=== PATIENT | female | born 1970 | race Caucasian/White ===

== ENCOUNTER 2017-01-21 10:52 | Emergency (ER) | payer OTHER, MEDICARE ==
[~2017-01-21 10:52] MED LIST: A/B OTIC 54 MG/15 ML AS; ATENOLOL100 M1 PO; CIPRODEX 0.3%-7.5 ML OTIC; CIPRODEX OTIC7.5 ML OT; CORTISPORIN TC10 ML OOTO; CYCLOBENZAPRINE10 MG PO; DIAZEPAM5 MG PO; IBUPROFEN800 M1 PO; NEURONTIN300 M1 PO; OXYBUTYNIN CHLOR5 M1 PO; SERTRALINE HCL100 MG PO; SERTRALINE HCL50 MG PO; TECFIDERA240 M2 PO
--- NOTE | 2017-01-21 11:00 | ED AMS/SEIZURE/WEAK/DIZZY ---
History of Present Illness General Chief Complaint: General Adult Stated Complaint: CHEST PRESSURE DIZZINESS Source: patient, old records Exam Limitations: no limitations Vital Signs & Intake/Output Vital Signs & Intake/Output Vital Signs Date Time Temp Pulse Resp B/P Pulse O2 O2 Flow FiO2 Ox Delivery Rate 01/21 1224 97.0 65 18 133/66 100 Room Air 01/21 1057 74 22 120/69 97 Room Air Allergies Coded Allergies: NO KNOWN ALLERGIES (09/24/16) Reconcile Medications Ascorbate Calcium (Vitamin C) 500 MG TABLET 1 TAB PO DAILY SUPPLEMENT ( Reported) Atenolol 100 MG TABLET 1 TAB PO DAILY BP (Reported) Cholecalciferol (Vitamin D3) (Vitamin D) 1,000 UNIT TABLET 1 TAB PO DAILY SUPPLEMENT (Reported) Dalfampridine (Ampyra) 10 MG TAB.ER.12H 1 TAB PO BID MS (Reported) Dimethyl Fumarate (Tecfidera) 240 MG CAPSULE.DR 1 CAP PO BID MS (Reported) Famotidine 20 MG TABLET 1 TAB PO DAILY GI (Reported) Gabapentin (Neurontin) 300 MG CAPSULE 1 CAP PO TID NEUROPATHY (Reported) Ibuprofen 800 MG TABLET 1 TAB PO Q8 PRN PAIN Melatonin 10 MG TABLET 2 TAB PO QPM SLEEP (Reported) Ondansetron (Zofran Odt) 4 MG TAB.RAPDIS 1 TAB SL TID PRN nausea Sertraline HCl 50 MG TABLET 1 TAB PO DAILY MENTAL HEALTH (Reported) Sertraline HCl 100 MG TABLET 2 TAB PO DAILY MENTAL HEALTH (Reported) Triage Note: PER PT STARTED ABOUT 0930 WHILE IN BED, PROFOUND DIZZYNESS ROOM SPINNING, GET THEM OFTEN PER PT THIS AM, ALSO BAND LIKE UPPER BACK PAIN, HX OF MS THIS AM VOMITTED AND WAS INCONTINENT. Triage Nurses Notes Reviewed? yes Onset: Abrupt Duration: hour(s): (2), better, constant Timing: recent history Injury Environment: home Severity: moderate Severity Numbers: 6 Modifying Factors: Worsens With: movement. Associated Symptoms: NV HPI: This is a 46-year-old female with history of MS presents emergency room with family for evaluation status post developing sudden onset of room spinning dizziness while she was lying in bed around 9:30 this morning. The patient states that she has these episodes frequently however does not take any medication on a regular basis any symptoms of an attribute to her MS. She states the symptoms resolved however prior to them resolving she developed nausea which is been constant since that 1 episode of vomiting and bilateral however right greater than left upper back pain. She reports the pain is worse with movement. She denies recent trauma or injury. No abdominal pain chest pain palpitations lightheadedness. She denies any change in her bowel movements. She had an episode of urinary incontinence which she states is normal for these episodes. She denies recent travel or immobility no leg swelling. No fever no chills no recent head trauma no change in her mental status per family. No cough no hemoptysis. There is no hematemesis (TERESA LEYVA) Past History Travel History Traveled to [place] past 21 day No Medical History Any Pertinent Medical History? see below for history Neurological: multiple sclerosis EENT: NONE Cardiovascular: SVT Respiratory: NONE Gastrointestinal: NONE Hepatic: NONE Renal: nephrolithiasis Musculoskeletal: NONE Psychiatric: NONE Endocrine: NONE Blood Disorders: NONE Cancer(s): NONE MOTORCYCLE POLICE/Reproductive: NONE Surgical History Surgical History: non-contributory Psychosocial History What is your primary language Yakut Tobacco Use: Never used Family History Hx Contributory? No (TERESA LEYVA) Review of Systems Review of Systems Constitutional: Reports: see HPI. All Other Systems: Reviewed and Negative Comments Review of systems: See HPI, All other systems negative. Constitutional, no chills no fever, no malaise HEENT: No visual changes no sore throat no congestion, no ear pain Cardiovascular: No chest pain , no palpitation , no orthopnea no ankle swelling Skin, no jaundice no rashes, no change in skin Respiratory: No dyspnea no cough no sputum no hemoptysis GI: nausea vomiting, no diarrhea, no bloating/constipation : No dysuria No hematuria, no frequency Muscle skeletal: No joint pain, no joint swelling, back pain, no neck pain, Neurologic: No numbness no confusion, no headache Psych: No stress Heme/endocrine: No bruising no bleeding Immunology: No lymphadenopathy (TERESA LEYVA) Physical Exam Physical Exam General Appearance: well developed/nourished, no apparent distress, alert, awake Comments: Well-developed well-nourished person in no acute distress HEENT: Normal EENT exam; PERRL, EOMI, no nystagmus. HEAD is atraumatic. moist mucous membranes. Neck: Supple, normal range of motion Back: Nontender, no CVA tenderness. Full range of motion Cardiovascular: Regular rate and rhythms no murmurs rubs or gallops Respiratory: Chest nontender.There were no bony deformities, no asymmetry. No respiratory distress. Patient speaking in full complete sentences. Breath sounds clear to auscultation bilaterally: NO W/R/R Abdomen: Soft, nontender nondistended, no appreciable organomegaly. Normal bowel sounds. No rebound/guarding, Extremity: No edema, full range of motion of extremities, normal and equal pulses bilaterally, 5 out of 5 strength noted to bilateral upper and lower extremities Neuro: Alert oriented x3, motor sensory gena. There were no obvious focal neurologic abnormalities. Skin: No appreciable rash on exposed skin, skin is warm and dry. Psych: Mood and affect is normal, memory and judgment is normal. Core Measures ACS in differential dx? Yes CVA/TIA Diagnosis: No Severe Sepsis Present: No Septic Shock Present: No All Positive = PERC Ruled Out: Positive: age < 50 years, heart rate < 100 bpm, O2 sat > 94%, no hemoptysis, no hormone use, no prior DVT or PE, no unilateral leg swellin, no surgery/trauma w/ in 4w. (COLLETTE YOUNG,TERESA) Progress Differential Diagnosis: arrythmia, anemia, benign positional vertigo, CVA/stroke , dehydration, drug intoxication, electrolyte imbalance, GI bleed, intracranial Hem., intracranial mass/tumor, labrynthitis, pneumonia, vertebrobasilar insuff, PE, AMI, MUSCLE STRAIN, VERTIGO Plan of Care: Orders Procedure Date/time Status Saline Lock 01/21 1109 Active Telemetry/Franchise Field Consultant 01/21 1109 Active TROPONIN LEVEL 01/21 1109 Complete PROTHROMBIN TIME 01/21 1109 Complete LIPASE 01/21 1109 Complete HUMAN BETA HCG SCREEN 01/21 1109 Complete D-DIMER 01/21 1109 Complete COMPREHENSIVE METABOLIC PANEL 01/21 1109 Complete CBC WITHOUT DIFFERENTIAL 01/21 1109 Complete AMYLASE 01/21 1109 Complete EKG 01/21 1058 Active Laboratory Tests 01/21/17 1123: Anion Gap 9, Estimated GFR > 60, BUN/Creatinine Ratio 26.7 H, Glucose 112 H, Calcium 9.3, Total Bilirubin 0.9, AST 18, ALT 24, Alkaline Phosphatase 86, Troponin I < 0.01, Total Protein 6.9, Albumin 3.8, Globulin 3.1, Albumin/ Globulin Ratio 1.2, Amylase 40, Lipase 97, Total Beta HCG NEGATIVE, PT 11.6, INR 1.11, D-Dimer < 200 01/21/17 1122: CBC w Diff MAN DIFF ORDERED, RBC 4.97, MCV 80.8 L, MCH 26.5 L, RDW 14.3, MPV 8.5, Gran % 83.9 H, Lymphocytes % 5.2 L, Monocytes % 7.7, Eosinophils % 3.1, Basophils % 0.1, Absolute Granulocytes 5.4, Absolute Lymphocytes 0.3 L, Absolute Monocytes 0.5, Absolute Eosinophils 0.2, Absolute Basophils 0, Platelet Estimate ADEQUATE, Normocytic RBCs VERIFIED, Normochromic RBCs VERIFIED, PUBS MCHC 32.8 L Patient medicated Toradol 30 IV IV fluids Zofran 4 IV she denies dizziness at this time case was discussed with Dr. Lino agrees with plan 01/21/2017 12:15:05 PM on repeat evaluation patient reports symptoms have resolved with Toradol and Zofran she's had no episodes of nausea and dry heaving here. Her upper back pain has resolved she denies any chest pain discussed with the patient and her family all her results. Adenopathy the patient requires further monitoring at this time , perc score 0, d-dimer negative, there is no abd pain. I had an extensive conversation regarding need for close follow up with their primary care physician this week as well as return precautions. I answered all of their questions, they feel comfortable with the plan and follow-up care. (COLLETTE YOUNG,TERESA) Diagnostic Imaging: Viewed by Me: Radiology Read. Discussed w/RAD: Radiology Read. Radiology Impression: PATIENT: JOSÉ ELIZABETH PRESENT AGE: 46 PATIENT ACCOUNT NO: [id number] : 69 LOCATION: [facility] ORDERING PHYSICIAN: TERESA YOUNG SERVICE DATE: 01/21/17 EXAM TYPE: RAD - XRY-PORTABLE CHEST XRAY EXAMINATION: XR PORTABLE CHEST CLINICAL INFORMATION: Upper back pain. COMPARISON: Chest 2007. TECHNIQUE: Portable AP view of the chest was obtained. FINDINGS: Both lungs are well-expanded and clear of acute pneumonic process. There is platelike atelectasis or scarring in the lingula. Heart size and pulmonary vascularity is normal. No gross bony abnormality seen. IMPRESSION: Platelike lingular scarring. No visible acute fracture or dislocation seen. DICTATED BY: OREN HERNANDEZ MD DATE/TIME DICTATED:1139 COLD WORKING INSPECTOR:DARA DATE/TIME TRANSCRIBED:01/21/171139 CONFIDENTIAL, DO NOT COPY WITHOUT APPROPRIATE AUTHORIZATION. <Electronically signed in Other Vendor System> SIGNED BY: OREN HERNANDEZ MD 01/21/17 1144 Initial ED EKG: NORMAL SINUS AT 60, NO ACUTE st SEGMENT CHANGES NORMAL AXIS Prior EKG: unchanged (12/2011) Rhythm Strip: normal sinus rhythm (TERESA LEYVA) Departure Departure Time of Disposition: 1214 Disposition: HOME OR SELF CARE Condition: Stable Clinical Impression Primary Impression: Upper back strain Secondary Impressions: Dizziness Referrals: LOUIS KIMBLE MD (PCP/Family) Additional Instructions: Rest bland diet today complaining of clear fluids. Follow-up with your primary care physician tomorrow. Return anytime sooner with any concerns of your symptoms redevelop or worsen. zofran for nausea if needed. this was sent to [facility]. Departure Forms: Customer Survey General Discharge Information Prescriptions: Current Visit Scripts Ondansetron (Zofran Odt) 1 TAB SL TID PRN nausea #10 TAB (TERESA LEYVA) PA/STAFF WRITER Co-Sign Statement Statement: ED Attending supervision documentation- [] I saw and evaluated the patient. I have also reviewed all the pertinent lab results and diagnostic results. I agree with the findings and the plan of care as documented in the PA's/STAFF WRITER's documentation. [X] I have reviewed the ED Record and agree with the PA's/STAFF WRITER's documentation. [] Additions or exceptions (if any) to the PAs/STAFF WRITER's note and plan are summarized below: [] (PATRICIA SLATER,AYLIN Corey)
[2017-01-21 11:34] LABS: ABSOLUTE BASOPHIL COUNT 0 /CUMM (0.0-0.2); ABSOLUTE EOSINOPHIL COUNT 0.2 /CUMM (0.0-0.7); ABSOLUTE GRANULOCYTE CT 5.4 /CUMM (1.4-6.5); ABSOLUTE LYMPH COUNT 0.3 /CUMM (1.2-3.4); ABSOLUTE MONOCYTE COUNT 0.5 /CUMM (0.10-0.60); BASOPHIL % 0.1 % (0.0-2.0); EOSINOPHIL % 3.1 % (0-5); GRANULOCYTE % 83.9 % (42.2-75.2); HEMATOCRIT 40.1 % (37-47); MEAN CORPUSCULAR HGB 26.5 PG (27.0-31.0); MEAN CORPUSCULAR HGB CONC 32.8 G/DL (33.0-37.0); MEAN CORPUSCULAR VOLUME 80.8 FL (81.0-99.0); MEAN PLATELET VOLUME 8.5 FL (7.4-10.4); PLATELET COUNT 212 /CUMM (130-400); RBC DISTRIBUTION WIDTH 14.3 % (11.5-14.5); RED BLOOD CELL CT 4.97 /CUMM (4.20-5.40); WHITE BLOOD CELL COUNT 6.4 /CUMM (4.8-10.8)
[2017-01-21 11:44] LABS: PT 11.6 SEC (9.4-12.5)
--- NOTE | 2017-01-21 11:44 | RADIOLOGY REPORT ---
EXAMINATION: XR PORTABLE CHEST CLINICAL INFORMATION: Upper back pain. COMPARISON: Chest 2006. TECHNIQUE: Portable AP view of the chest was obtained. FINDINGS: Both lungs are well-expanded and clear of acute pneumonic process. There is platelike atelectasis or scarring in the lingula. Heart size and pulmonary vascularity is normal. No gross bony abnormality seen. IMPRESSION: Platelike lingular scarring. No visible acute fracture or dislocation seen.
[2017-01-21] MEDS ORDERED: AMPYRA10 M1 PO (11:57)
[2017-01-21] MEDS ORDERED: VITAMIN D1000 UNIT PO (11:57)
[2017-01-21] MEDS ORDERED: MELATONIN10 M2 PO (11:58)
[2017-01-21] MEDS ORDERED: VITAMIN C500 M6 PO (11:58)
[2017-01-21] MEDS ORDERED: FAMOTIDINE20 M1 PO (11:59)
[2017-01-21] MEDS ORDERED: ZOFRAN ODT4 M1 SL (12:22)
[2017-01-21 12:24] VITALS: BP 133/66
== END 2017-01-21 12:28 ==
LOC: ERH 10:52
PROVIDERS: Physician Assistant Medical
DX: S29.012A Strain of muscle and tendon of back wall of thorax, initial encounter (principal); R42 Dizziness and giddiness; X50.9XXA Other and unspecified overexertion or strenuous movements or postures, initial encounter; Y93.89 Activity, other specified; Y92.9 Unspecified place or not applicable
CPT/HCPCS: 93005; 93010; 96374; 96375; J1885; J2405